=== PATIENT | male | born 1975 | race Caucasian/White ===

== ENCOUNTER → 2016-09-18 | Outpatient (CLI) | payer BC | END | disposition disaster alternative care site (69) | LOC: GRAD 11:20 | DX: S89.92XA Unspecified injury of left lower leg, initial encounter (principal); S82.252A Displaced comminuted fracture of shaft of left tibia, initial encounter for closed fracture; M25.462 Effusion, left knee; X58.XXXA Exposure to other specified factors, initial encounter ==